=== PATIENT | male | born 1985 | race Caucasian/White ===

== ENCOUNTER 2018-10-29 15:58 | Emergency (ER) | payer OTHER | END 2018-10-29 18:53 | disposition home or self-care (01) | LOC: FTE 15:58 | DX: K08.89 Other specified disorders of teeth and supporting structures (principal); J45.909 Unspecified asthma, uncomplicated | CPT/HCPCS: 99283; Z7502 ==

== ENCOUNTER 2019-07-14 09:34 | Emergency (ER) | payer OTHER ==
[2019-07-14] MEDS: KETOROLAC 30 MG INJ IM (10:55)
== END 2019-07-14 11:12 | disposition home or self-care (01) ==
LOC: FTE 11:12
DX: K02.9 Dental caries, unspecified (principal); J45.909 Unspecified asthma, uncomplicated
CPT/HCPCS: 99283; J1885